=== PATIENT | female | born 1985 | race Caucasian/White ===

== ENCOUNTER → 2016-04-14 | Outpatient (CLI) | payer OTHER | LOC: FIMAGING 08:02 | PROVIDERS: ATTEND Obstetrics & Gynecology | DX: Z36 Encounter for antenatal screening of mother (principal); Z3A.21 21 weeks gestation of pregnancy ==

== ENCOUNTER → 2016-07-29 | Outpatient (CLI) | payer OTHER | LOC: FIMAGING 13:35 | PROVIDERS: ATTEND Obstetrics & Gynecology | DX: O36.5930 Maternal care for other known or suspected poor fetal growth, third trimester, not applicable or unspecified (principal); Z3A.37 37 weeks gestation of pregnancy ==

== ENCOUNTER 2016-08-21 17:00 | Inpatient (IN) | payer OTHER ==
[2016-08-22] MEDS ORDERED: ACETAMINOPHEN 325 MG TAB PO PRN (19:00)
[2016-08-22] MEDS ORDERED: ZOLPIDEM TARTRATE 5 MG TAB PO PRN (19:00)
[2016-08-22] MEDS ORDERED: CALCIUM CARBONATE 500 MG CHEWABLE TAB PO PRN (19:01)
[2016-08-22] MEDS ORDERED: OXYTOCIN/LR *STANDARD DOSE PROTOCOL IV SCH (19:30)
[2016-08-22] MEDS ORDERED: TERBUTALINE SULFATE 1 MG/ML VIAL IV PRN (20:05)
[2016-08-22] MEDS ORDERED: OLIVE OIL 118 ML BTL MISC PRN (20:05)
[2016-08-22] MEDS ORDERED: LR 1,000 ML IV PRN (20:05)
[2016-08-22] MEDS ORDERED: OXYTOCIN/RINGERS LACTATE 1,000 ML IV PRN (20:05)
[2016-08-22] MEDS ORDERED: EPSOM SALT 454 GM TP PRN (20:05)
[2016-08-22 21:27] LABS: % IMMATURE GRANULYOCYTES 0.6 % (0.0-1.1); ABSOLUTE IMMATURE GRANULOCYTES 0.06 10^3/uL (0.00-0.10); ADD DIFF? NO; ADD MORPH? NO; ADD SCAN? NO; ATYPICAL LYMPHOCYTE FLAG 0 (0-99); FRAGMENT RBC FLAG 0 (0-99); HEMATOCRIT 38.2 % (38.0-47.0); HEMOGLOBIN 13.2 g/dL (12.6-16.3); LEFT SHIFT FLG 0 (0-99); LIPEMIA HEMOLYSIS FLAG 90 (0-99); MEAN CELL HEMOGLOBIN 32.4 pg (27.9-34.1); MEAN CELL HEMOGLOBIN CONCENTR. 34.6 g/dL (32.4-36.7); MEAN CELL VOLUME 93.9 fL (81.5-99.8); MEAN PLATELET VOLUME 11.3 fL (8.7-11.7); PLATELET CLUMPS FLAG 10 (0-99); PLATELET COUNT 151 10^3/uL (150-400); RED BLOOD CELL COUNT 4.07 10^6/uL (4.18-5.33); RED CELL DISTRIBUTION WIDTH 13.2 % (11.5-15.2)
[2016-08-22] MEDS ORDERED: LIDOCAINE 1% 300 MG/30 ML SDV ONE (22:00)
[2016-08-22] MEDS ORDERED: AMMONIA AROMATIC 1 EACH AMP IH ONE (22:01)
[2016-08-22] MEDS ORDERED: TERBUTALINE SULFATE 1 MG/ML VIAL ONE (22:01)
[2016-08-22] MEDS ORDERED: OLIVE OIL 118 ML BTL ONE (22:01)
[2016-08-22] MEDS ORDERED: MISOPROSTOL 200 MCG TAB ONE (22:02)
[2016-08-22] MEDS ORDERED: OXYTOCIN 10 UNIT/ML VIAL ONE (22:02)
--- NOTE | 2016-08-23 07:41 | OBPROG ---
OBG Labor Progress Note Assessment/Plan: Assessment: 31 yo @ 40 1/7, admitted for IOL Plan: 08/23/16 07:39 FWB reassuring. GBS neg. Epidural as desired. Expect . Subjective: 31 yo @ 40 1/7, admitted for IOL Objective: 08/22/16 21:20 Patient ABO/Rh O POSITIVE 08/22/16 21:20 VSS - SVE Dilation (cm): 5 Effacement (%): 80 Station: 0 Otto FHR (bpm): 130 FHR Pattern Variability: Moderate FHR Category: 2 Membranes: AROM Amniotic Fluid Color: Clear - Procedures Non-surgical Procedures: Amniotomy Oxytocin Orders Assessment - Pre-Induction/Augmentation Assessment Gestational Age: 40 week(s) and 0 day(s) ICD10 Worksheet Patient Problems: Problems Problem Status Onset Elective induction of labor planned Acute
[2016-08-23] MEDS ORDERED: fentaNYL 2MCG/ML/BUP 0.1% RTU 100 ML BAG EP ONE (10:26)
[2016-08-23] MEDS ORDERED: BUPIVACAINE 0.25% 30 ML SDV ONE ×2 (10:27→11:53)
[2016-08-23] MEDS ORDERED: PHENYLEPHRINE HCL 100 MCG/ML SYR ONE (10:27)
[2016-08-23] MEDS ORDERED: fentaNYL 100 MCG/2 ML INJ ONE ×3 (10:28→11:53)
[2016-08-23] MEDS ORDERED: fentaNYL 100 MCG/2 ML INJ IV ONE (10:40)
--- NOTE | 2016-08-23 11:27 | OBPROG ---
OBG Labor Progress Note Assessment/Plan: Assessment: 31 yo @ 40 1/7, admitted for IOL Plan: FWB reassuring. GBS neg. Epidural placed Expect . 08/23/16 11:26 Subjective: 31 yo @ 40 1/7, admitted for IOL-just got an epidural. Objective: 08/22/16 21:20 Patient ABO/Rh O POSITIVE 08/22/16 21:20 VSS - SVE Dilation (cm): 7 Effacement (%): 80 Station: 0 Otto FHR (bpm): 130 FHR Pattern Variability: Moderate FHR Category: 2 Membranes: AROM Amniotic Fluid Color: Clear - Procedures Non-surgical Procedures: Amniotomy Oxytocin Orders Assessment - Pre-Induction/Augmentation Assessment Gestational Age: 40 week(s) and 0 day(s) ICD10 Worksheet Patient Problems: Problems Problem Status Onset Elective induction of labor planned Acute
--- NOTE | 2016-08-23 11:42 | PREANESOB ---
Obstetric Pre-Anesthesia Info - General Info Proposed Procedure: Labor and delivery with pitocin. : 1 Para: 0 WBD: 40 - Info Status: Full Term Monitors: External FHR Baseline (bpm): 130 FHR Pattern: Reassuring - Labor Status Cervical Dilation per last OB SVE: 7 Station per last OB SVE: 0 Pitocin: In Use Indications for Labor Analgesia: Induction of Labor, Pain Control Labor Epidural: Proposed Anesthesia Allergies/Adverse Reactions: Allergy/AdvReac Type Severity Reaction Status Date / Time lidocaine Allergy Verified 08/22/16 19:16 oxycodone Allergy Verified 08/22/16 19:16 procaine Allergy Verified 08/22/16 19:16 propoxyphene Allergy Verified 08/22/16 19:16 Visit Medications: Generic Name Dose Route Start Last Admin Trade Name Freq PRN Reason Stop Dose Admin Acetaminophen 650 mg 08/22/16 19:00 08/22/16 19:57 Tylenol PO 02/18/17 18:59 650 mg Q6 PRN Administration HEADACHE Calcium Carbonate 500 - 1,000 mg 08/22/16 19:01 Tums PO 02/18/17 19:00 Q4 PRN GERD Oxytocin/Lactated Ringer's 500 mls @ 0 mls/hr 08/22/16 19:30 08/23/16 04:45 Pitocin 30 Units/Lr (Premix) IV 02/18/17 19:29 500 mls CONT SANTIAGO Administration Protocol Per Protocol Lactated Ringer's 1,000 mls @ 0 mls/hr 08/22/16 20:05 08/23/16 04:46 Lr IV 02/18/17 20:04 1,000 mls PRN PRN Administration SEE PROTOCOL CONDITIONS Protocol Per Protocol Oxytocin/Lactated Ringer's 1,000 mls @ 150 mls/hr 08/22/16 20:05 Pitocin 20 Units/Lr (Premix) IV PRN PRN Post- bleeding Ibuprofen 600 mg 08/22/16 20:05 Motrin PO 02/18/17 20:04 Q6HRS PRN post , inflammation Magnesium Sulfate 454 gm 08/22/16 20:05 Epsom Salt TP 02/18/17 20:04 Q1H PRN perineal discomfort [place] Oil 118 ml 08/22/16 20:05 Sweet Oil MISC 02/18/17 20:04 ONCE PRN preneal massage Terbutaline Sulfate 0.25 mg 08/22/16 20:05 Brethine IV 02/18/17 20:04 ONCE PRN Tachysystole Zolpidem Tartrate 5 mg 08/22/16 19:00 08/22/16 22:12 Ambien PO 02/18/17 18:59 5 mg HS PRN Administration Sleep/Insomnia Discontinued Medications Generic Name Dose Route Start Last Admin Trade Name Zita PRN Reason Stop Dose Admin Ammonia (Aromatic Spirit) Confirm 08/22/16 22:01 Ammonia Aromatic Administered 08/22/16 22:02 Dose 1 each IH .STK-MED ONE Bupivacaine HCl Confirm 08/23/16 10:27 Sensorcaine 0.25% Sdv Administered 08/23/16 10:28 Dose 30 ml .ROUTE .STK-MED ONE Ephedrine Sulfate Confirm 08/22/16 22:01 Ephedrine Sulfate Administered 08/22/16 22:02 Dose 50 mg .ROUTE .STK-MED ONE Fentanyl Confirm 08/23/16 10:28 Sublimaze Administered 08/23/16 10:29 Dose 100 mcg .ROUTE .STK-MED ONE Fentanyl Confirm 08/23/16 10:44 Sublimaze Administered 08/23/16 10:45 Dose 100 mcg .ROUTE .STK-MED ONE Fentanyl/Bupivacaine HCl Confirm 08/23/16 10:26 Fentanyl/Bupivacaine/Ns 2 Mcg/Ml 0.1% (Premix Administered 08/23/16 10:27 Dose 100 ml EP .STK-MED ONE Lidocaine HCl Confirm 08/22/16 22:00 Lidocaine Hcl 1% Administered 08/22/16 22:01 Dose 300 mg .ROUTE .STK-MED ONE Misoprostol Confirm 08/22/16 22:02 Cytotec Administered 08/22/16 22:03 Dose 1,000 mcg .ROUTE .STK-MED ONE [place] Oil Confirm 08/22/16 22:01 Sweet Oil Administered 08/22/16 22:02 Dose 118 ml .ROUTE .STK-MED ONE Oxytocin Confirm 08/22/16 22:02 Pitocin Administered 08/22/16 22:03 Dose 40 unit .ROUTE .STK-MED ONE Phenylephrine HCl Confirm 08/23/16 10:27 Neosynephrine Administered 08/23/16 10:28 Dose 1,000 mcg .ROUTE .STK-MED ONE Terbutaline Sulfate Confirm 08/22/16 22:01 Brethine Administered 08/22/16 22:02 Dose 1 mg .ROUTE .STK-MED ONE - Anesthesia History Response to Local Anesthetics: Normal Anesthesia & Operative History: Prob w/Prior Anesthesia (Pt. had localized swelling after lidocaine injection at the dentist.) - Focused Exam Blood Pressure: 112/82 Heart Rate: 56 Respiratory Rate: 16 Height/Weight (Nursing): Height 175.26 cm Weight 81.647 kg Physical Exam: Within normal limits. ASA Status: II Labs: 08/22/16 21:20 Patient ABO/Rh O POSITIVE 08/22/16 21:20 - Plan Anesthetic Plan: epidural Consent Signed and on Chart: Yes Patient/Guardian Understands and Agrees to Plan: Yes Urgent/Emergent Case: Darleen plascencia completed preop but documented later for safe timely pt care
[2016-08-23] MEDS ORDERED: ONDANSETRON 4 MG/2 ML VIAL IVP PRN (11:44)
[2016-08-23] MEDS ORDERED: PHENYLEPHRINE HCL 100 MCG/ML SYR IVP PRN (11:44)
[2016-08-23] MEDS ORDERED: LR 500 ML IV SCH (12:00)
[2016-08-23] MEDS ORDERED: fentaNYL 2MCG/ML/BUP 0.1% RTU 100 ML EP SCH (12:00)
--- NOTE | 2016-08-23 12:46 | POSTANESTH ---
Post Anesthetic Evaluation Cardiovascular Status: Tx Hyper/Hypo-tension Respiratory Status: Normal, Stable, Similar to Pre-op Cond. Level of Consciousness/Mental Status: Can Participate in Eval, Alert and Oriented (Initial epidural catheter replaced after only partially effective analgesia, comfortable after CSE, BP stable after phenylephrine.) Pain Control: Adequate, Prn Tx Ordered Nausea/Vomiting Control: Adequate, Prn Tx Ordered Complications Possibly Related to Anesthesia: None Noted
--- NOTE | 2016-08-23 13:25 | OBPROG ---
OBG Labor Progress Note Assessment/Plan: Assessment: 31 yo @ 40 1/7, admitted for IOL Plan: FWB reassuring. GBS neg. Epidural placed Expect . 08/23/16 13:25 Subjective: 31 yo @ 40 1/7, admitted for IOL Objective: 08/22/16 21:20 Patient ABO/Rh O POSITIVE 08/22/16 21:20 Temp Pulse Resp BP Pulse Ox 56 L 16 112/82 H 08/23/16 11:43 08/23/16 11:43 08/23/16 11:43 VSS - SVE Dilation (cm): 9 Effacement (%): 100 Station: 0 Otto FHR (bpm): 130 FHR Pattern Variability: Moderate FHR Category: 2 Membranes: AROM Amniotic Fluid Color: Clear - Procedures Non-surgical Procedures: Amniotomy Oxytocin Orders Assessment - Pre-Induction/Augmentation Assessment Gestational Age: 40 week(s) and 0 day(s) ICD10 Worksheet Patient Problems: Problems Problem Status Onset Elective induction of labor planned Acute
[2016-08-23] MEDS: IBUPROFEN 600 MG TAB PO PRN ×2 (17:14→23:22)
--- NOTE | 2016-08-23 17:20 | OBDEL ---
Info Type: Vaginal GBS+: No Indications for Delivery: Elective Vaginal Delivery - Labor and Delivery Onset of Contractions Date: 08/23/16 Onset of Contractions Time: :30 Onset of Contractions Type: Induced Rupture of Membranes Date: 08/23/16 Rupture of Membranes Time: 07:30 Rupture of Membranes Type: Artificial Amniotic Fluid Color: Clear Dilation Complete Date: 08/23/16 Dilation Complete Time: 14:00 Placenta Delivery Date: 08/23/16 Non-surgical Procedures: Amniotomy Laceration: 1st Degree Repair: 3-0, 4-0, Vicryl Vaginal Sponge Count Correct: Yes Vaginal Needle Count Correct: Yes Vaginal Sweep Performed: No EBL: 300ml Delivery Events: None - Medications Labor Augmentation/Induction Methods Used: Pitocin, Kennedy Bulb Labor Augmentation/Induction Indication: Elective Operative Report - Delivery L&D Analgesia/Anesthesia Type: Epidural [place] Data Otto Delivery Date: 08/23/16 Delivery Time: 15:19 KATHIE: 08/22/16 Gestational Age: 40 week(s) and 1 day(s) Sex of Infant: Female Score (1 Min): 8 Score (5 Min): 9 ICD10 Worksheet Patient Problems: Problems Problem Status Onset Elective induction of labor planned Acute
--- NOTE | 2016-08-23 17:21 | OBGCSDC ---
General Delivery Information - General Info : 1 Para: 0 Delivery Physician/CNM: Katie Schuler Admission Date: 08/22/16 Labs: Patient ABO/Rh O POSITIVE 08/22/16 21:20 Hct 38.2 % (38.0-47.0) 08/22/16 21:20 Vaginal - Diagnosis Labor: Induced Rupture of Membranes Type: Artificial Amniotic Fluid Color: Clear Laceration: 1st Degree Repair: 3-0, 4-0, Vicryl Delivery Events: None - Operations/Procedures Non-surgical Procedures: Amniotomy L&D Analgesia/Anesthesia Type: Epidural - Hospital Course Antepartum: none Intrapartum: none - Delivery Type: Vaginal Non-surgical Procedures: Amniotomy EBL: 300ml L&D Analgesia/Anesthesia Type: Epidural [place] Data Otto Delivery Date: 08/23/16 Delivery Time: 15:19 KATHIE: 08/22/16 Gestational Age: 40 week(s) and 1 day(s) Sex of : Female Score (1 Min): 8 Score (5 Min): 9
[2016-08-23 21:29] VITALS: O2SAT 94
[2016-08-24] MEDS: IBUPROFEN 600 MG TAB PO PRN ×3 (06:18→18:44)
--- NOTE | 2016-08-24 08:43 | OBPP ---
Progress Note Assessment/Plan: Assessment: 31 y.o. s/p PPD #1. Recovering well with good pain control. . Plan: Routine care. consult 08/24/16 08:40 Subjective: Reports feeling well with good pain control and minimal vaginal bleeding. . Eating and drinking well without n/v. Ambulating without vertigo. Appropriate mood with good support system. Objective: 08/22/16 21:20 Patient ABO/Rh O POSITIVE 08/22/16 21:20 Temp Pulse Resp BP Pulse Ox 36.8 C 77 18 108/65 94 08/23/16 23:43 08/23/16 23:43 08/23/16 23:43 08/23/16 23:43 08/23/16 20:05 Uterine Position/Fundal Height: Umbilicus -1 Uterine Tone: Firm Physical Exam - Physical Exam General Appearance: WD/WN, alert, no apparent distress EENT: normal ENT inspection Neck: non-tender, full range of motion, normal inspection Respiratory: lungs clear, normal breath sounds Cardiac/Chest: regular rate, rhythm Abdomen: normal bowel sounds, non-tender, soft Extremities: non-tender, normal inspection Back: Normal inspection Skin: normal color, warm/dry Neuro/Psych: alert, normal mood/affect, oriented x 3
[2016-08-25] MEDS: IBUPROFEN 600 MG TAB PO PRN ×3 (00:37→12:30)
--- NOTE | 2016-08-25 08:05 | OBGCSDC ---
General Delivery Information - General Info : 1 Para: 1 Delivery Physician/CNM: Katie Schuler Admission Date: 08/23/16 Labs: Patient ABO/Rh O POSITIVE 08/22/16 21:20 Hct 38.2 % (38.0-47.0) 08/22/16 21:20 Vaginal - Diagnosis Labor: Induced Presentation at Delivery: Vertex Rupture of Membranes Type: Artificial Amniotic Fluid Color: Clear Laceration: 1st Degree Repair: 3-0, 4-0, Vicryl Delivery Events: None - Operations/Procedures Non-surgical Procedures: Amniotomy L&D Analgesia/Anesthesia Type: Epidural - Delivery Non-surgical Procedures: Amniotomy L&D Analgesia/Anesthesia Type: Epidural [place] Data Otto Delivery Date: 08/23/16 Delivery Time: 15:19 KATHIE: 08/22/16 Gestational Age: 40 week(s) and 3 day(s) Sex of : Female Weight (gm): 3450 g Score (1 Min): 8 Score (5 Min): 9 Discharge Information - Discharge Information Discharge Medications: Ibuprofen, Vitamins Condition: Good Instruction/Follow Up: Four Weeks, Six Weeks Discharge Physician/CNM: Mary Elizabeth
[2016-08-25] MEDS ORDERED: CYCLOBENZAPRINE 10 MG TAB PO SCH (09:00)
[2016-08-25 10:10] VITALS: BP 105/71; PULSE 78; RESP 16; TEMP 97.4
== END 2016-08-25 13:00 | disposition home or self-care (01) | DRG 775 ==
LOC: FLD 08-22 18:27 → FOB 08-23 17:26
PROVIDERS: ADMIT Obstetrics & Gynecology; ATTEND Obstetrics & Gynecology
PROC: 3E033VJ Introduction of Other Hormone into Peripheral Vein, Percutaneous Approach (ICD-10-PCS; 2016-08-22)
PROC: 0HQ9XZZ Repair Perineum Skin, External Approach (ICD-10-PCS; principal; 2016-08-23)
PROC: 10E0XZZ Delivery of Products of Conception, External Approach (ICD-10-PCS; principal; 2016-08-23)
DX: O48.0 Post-term pregnancy (principal); O70.0 First degree perineal laceration during delivery; Z3A.40 40 weeks gestation of pregnancy; Z37.0 Single live birth
CPT/HCPCS: J2370; J2590; J3010; J3105

== ENCOUNTER → 2017-02-02 | Outpatient (CLI) | payer OTHER | LOC: BMCIMAGING 08:24 | PROVIDERS: ATTEND Obstetrics & Gynecology | DX: R10.2 Pelvic and perineal pain (principal) ==

== ENCOUNTER → 2017-03-16 | Outpatient (CLI) | payer OTHER ==
[~2017-03-16] MED LIST: GADOBUTROL 10 ML VIAL IVP ONE
== END ==
LOC: FIMAGING 07:57
PROVIDERS: ATTEND Obstetrics & Gynecology
DX: M46.1 Sacroiliitis, not elsewhere classified (principal); M85.38 Osteitis condensans, other site
CPT/HCPCS: A9585

== ENCOUNTER 2018-05-23 19:03 | Emergency (ER) | payer OTHER ==
--- NOTE | 2018-05-23 19:21 | EDPHY ---
H & P Stated Complaint: SOB, chest/back hurts, hip surgery 07/03 Time Seen by Provider: 05/23/18 19:13 HPI/ROS: CHIEF COMPLAINT: Dyspnea, pleuritic chest pain since this morning HISTORY OF PRESENT ILLNESS: 32-year-old female post left labral repair by Dr. Axel Marti in [facility] on May 03 , was on 2 weeks of aspirin post operative, awoke with right scapular and apical pleuritic chest pain. She has associated dyspnea. REVIEW OF SYSTEMS: 10 systems reviewed and negative with the exception of the elements mentioned in the history of present illness PAST MEDICAL & SURGICAL HISTORY: 05/03/2018 left hip labral surgery SOCIAL HISTORY: Nonsmoker. No drug use. PHYSICAL EXAM (Prior to examination, patient consented to physical exam, hands were washed and my usual and customary physical exam procedures followed) 1) GENERAL: Well-developed, well-nourished, alert and oriented. Appears uncomfortable, crying. 2) HEAD: Normocephalic, atraumatic 3) HEENT: Pupils equal, round, reactive to light bilaterally. Sclera anicteric. 4) NECK: Full range of motion, no meningeal signs. 5) LUNGS: Clear auscultation bilaterally, no wheezes, no rhonchi, no retractions. No crepitus. No tenderness to palpation. No discoloration. 6) HEART: Regular rate and rhythm, no murmur, no heave, no gallop. 7) ABDOMEN: No guarding, no rebound, no focal tenderness, negative McBurney's, negative Quigley's, negative Rovsing's, negative peritoneal sign, 8) MUSCULOSKELETAL: Moving all extremities, no focal areas of tenderness, no obvious trauma. No peripheral edema or discoloration. Negative Homans no palpable cord 9) BACK: No CVA tenderness, no midline vertebral tenderness, no fluctuance, no step-off, no obvious trauma, no visual or palpable abnormality. 10) SKIN: No rash, no petechiae. 11) Psychiatric: Patient is oriented X 3, there is no agitation. DIFFERENTIAL DIAGNOSIS: In no particular order including but not limited to pneumothorax, atelectasis, pneumonia, pulmonary embolus - Personal History LMP (Females 10-55): 15-21 Days Ago Current Tetanus/Diphtheria Vaccine: Yes Current Tetanus Diphtheria and Acellular Pertussis (TDAP): Yes - Medical/Surgical History Hx Asthma: No Hx Chronic Respiratory Disease: No Hx Diabetes: No Hx Cardiac Disease: No Hx Renal Disease: No Hx Cirrhosis: No Hx Alcoholism: No Hx HIV/AIDS: No Hx Splenectomy or Spleen Trauma: No Other PMH: migraines, tonisellectomy, orthopedic surgery, physical therapy treatments, - Social History Smoking Status: Never smoked Constitutional: Initial Vital Signs Temperature (C) 36.7 C 05/23/18 19:06 Heart Rate 66 05/23/18 19:06 Respiratory Rate 18 05/23/18 19:06 Blood Pressure 138/104 H 05/23/18 19:06 O2 Sat (%) 97 05/23/18 19:06 O2 Delivery Mode Room Air Allergies/Adverse Reactions: lidocaine Allergy (Verified 05/23/18 19:05) oxycodone Allergy (Verified 05/23/18 19:05) procaine Allergy (Verified 05/23/18 19:05) propoxyphene Allergy (Verified 05/23/18 19:05) Home Medications: Medication Instructions Recorded Control Pill 05/23/18 CeleBREX 05/23/18 IMITREX 05/23/18 Medical Decision Making - Diagnostics Imaging Results: Imaging Impressions Chest/Thorax CTA 05/23/18 19:50 Impression: 1. No definite pulmonary thromboemboli. 2. No aortic aneurysm or dissection. 3. Minimal patchy dependent atelectasis right lower lobe, without pneumonia or pneumothorax. Findings and recommendations discussed with Emergency Department physician, Sd Lewis PA-C, at 2029 hours, on May 23, 2018. Final report concurs with initial preliminary interpretation. Images reviewed myself ED Course/Re-evaluation: 7:18 p.m.: High pretest probability for pulmonary embolus given the patient's recent surgery, dyspnea and pleuritic pain complaints. Recommend directly to CT angiography once patient's creatinine is evaluated. Discussed this with patient and she is in agreement. 9:20 p.m.: Re-evaluation, patient resting comfortably after IV morphine. Discussed with the patient her diagnostic studies show no evidence of pulmonary emboli. She is noted to have patchy atelectatic findings in the right lower lobe which may account for her pain. Doubt DC. At this time I think the patient can be safely discharged home. She has prescription for Vicodin at home which she may take. She is already on Celebrex as well which I recommend she continue. Patient feels comfortable being discharged. All questions and concerns addressed by myself. Patient given my usual and customary discharge precautions and instructions regarding their clinical impression. Care of patient under supervision of secondary supervising physician Dr Marti with whom I discussed case. - Data Points Laboratory Results: Laboratory Results 05/23/18 19:15 05/23/18 19:15 05/23/18 05/23/18 05/23/18 20:40 19:15 19:15 WBC RBC Hgb Hct MCV MCH MCHC RDW Plt Count MPV Neut % (Auto) Lymph % (Auto) Page % (Auto) Eos % (Auto) Baso % (Auto) Nucleat RBC Rel Count Absolute Neuts (auto) Absolute Lymphs (auto) Absolute Monos (auto) Absolute Eos (auto) Absolute Basos (auto) Absolute Nucleated RBC Immature Gran % Immature Gran # Sodium 139 mEq/L mEq/L (135-145) Potassium 4.0 mEq/L mEq/L (3.5-5.2) Chloride 106 mEq/L mEq/L (97-110) Carbon Dioxide 22 mEq/l mEq/l (22-31) Anion Gap 11 mEq/L mEq/L (6-14) BUN 12 mg/dL mg/dL (7-23) Creatinine 0.7 mg/dL mg/dL (0.6-1.0) Estimated GFR > 60 Glucose 102 mg/dL H mg/dL (70-100) Calcium 9.7 mg/dL mg/dL (8.5-10.4) POC Troponin I 0.00 ng/mL ng/mL (0.00-0.08) Beta HCG, Qual NEGATIVE 05/23/18 19:15 WBC 9.83 10^3/uL H 10^3/uL (3.80-9.50) RBC 4.98 10^6/uL 10^6/uL (4.18-5.33) Hgb 16.0 g/dL g/dL (12.6-16.3) Hct 47.5 % H % (38.0-47.0) MCV 95.4 fL fL (81.5-99.8) MCH 32.1 pg pg (27.9-34.1) MCHC 33.7 g/dL g/dL (32.4-36.7) RDW 12.2 % % (11.5-15.2) Plt Count 269 10^3/uL 10^3/uL (150-400) MPV 10.9 fL fL (8.7-11.7) Neut % (Auto) 45.9 % % (39.3-74.2) Lymph % (Auto) 45.8 % H % (15.0-45.0) Page % (Auto) 6.4 % % (4.5-13.0) Eos % (Auto) 1.3 % % (0.6-7.6) Baso % (Auto) 0.5 % % (0.3-1.7) Nucleat RBC Rel Count 0.0 % % (0.0-0.2) Absolute Neuts (auto) 4.51 10^3/uL 10^3/uL (1.70-6.50) Absolute Lymphs (auto) 4.50 10^3/uL H 10^3/uL (1.00-3.00) Absolute Monos (auto) 0.63 10^3/uL 10^3/uL (0.30-0.80) Absolute Eos (auto) 0.13 10^3/uL 10^3/uL (0.03-0.40) Absolute Basos (auto) 0.05 10^3/uL 10^3/uL (0.02-0.10) Absolute Nucleated RBC 0.00 10^3/uL 10^3/uL (0-0.01) Immature Gran % 0.1 % % (0.0-1.1) Immature Gran # 0.01 10^3/uL 10^3/uL (0.00-0.10) Sodium Potassium Chloride Carbon Dioxide Anion Gap BUN Creatinine Estimated GFR Glucose Calcium POC Troponin I Beta HCG, Qual Medications Given: Discontinued Medications Morphine Sulfate (Morphine) 4 mg IVP EDNOW ONE Stop: 05/23/18 19:41 Last Admin: 05/23/18 19:52 Dose: 4 mg Point of Care Test Results: Chemistry 05/23/18 20:40 POC Troponin I 0.00 ng/mL ng/mL (0.00-0.08) Departure - Departure Disposition: Home, Routine, Self-Care Clinical Impression: Atelectasis of right lung Condition: Good Instructions: Atelectasis (ED) Additional Instructions: Use your incentive spirometer every hour while awake. You may take your Vicodin tablets, 1 tablets every 6 hr as needed for pain. Do not take this with Tylenol. Return to the ER if you develop new or worsening symptoms. Referrals: Paula Barajas MD [Primary Care Provider] - 1-2 days without fail
[2018-05-23 19:37] LABS: PLATELET COUNT 269 10^3/uL (150-400)
[2018-05-23] MEDS ORDERED: ONDANSETRON 4 MG/2 ML VIAL ONE (19:50)
[2018-05-23] MEDS ORDERED: IOPAMIDOL (ISOVUE 370) 100 ML BTL IV ONE (20:04)
--- NOTE | 2018-05-23 21:24 | CPEKG ---
Test Reason : OPEN Blood Pressure : / mmHG Vent. Rate : 069 BPM Atrial Rate : 068 BPM P-R Int : 162 ms QRS Dur : 093 ms QT Int : 416 ms P-R-T Axes : 035 -28 013 degrees QTc Int : 446 ms Sinus rhythm Probable left atrial enlargement Borderline left axis deviation Borderline T abnormalities, anterior leads Confirmed by Sylvain Marti ([id number]) on 05/23/2018 9:23:53 PM Referred By: Sylvain Marti Confirmed By:Sylvain Marti
[2018-05-23 21:48] VITALS: BP 120/75
== END 2018-05-23 21:35 | disposition home or self-care (01) ==
DX: J98.11 Atelectasis (principal); Z98.890 Other specified postprocedural states
CPT/HCPCS: 84484-ER; 96374; J2270; J2405; Q9967